=== PATIENT | female | born 1940 | race Caucasian/White ===

== ENCOUNTER → 2021-02-20 | Outpatient (CLI) | payer MEDICARE ==
[~2021-02-20] MED LIST: BENTYL 10MG CAP10 MG PO; DIGOXIN250 MCG PO; ELIQUIS2.5 MG PO; ELOCON45 G1 TP; ESOMEPRAZOLE MA40 MG PO; GABAPENTIN600 MG PO; GLUCOPHAGE500 MG PO; HYDROCHLOROTHIA25 MG PO; IBUPROFEN200 M1 PO; JANUVIA100 MG PO; K-DUR TAB 20 M20 MEQ PO; LANTUS100 UNIT/1 SQ; LASIX80 MG PO; LIPITOR40 MG PO; LORTAB 5-325 M1 EACH PO; TOPROL XL50 MG PO; TYLENOL 325MG325 MG PO; ZOLOFT50 MG PO
== END ==
LOC: HEART 5 13:25
DX: J90 Pleural effusion, not elsewhere classified (principal); I34.0 Nonrheumatic mitral (valve) insufficiency; I51.7 Cardiomegaly; I27.20 Pulmonary hypertension, unspecified; Z95.0 Presence of cardiac pacemaker
CPT/HCPCS: 93306

== ENCOUNTER → 2021-05-17 | Outpatient (CLI) | payer MEDICARE | LOC: RAD 16:56 | DX: R05.9 Cough, unspecified (principal); D71 Functional disorders of polymorphonuclear neutrophils | CPT/HCPCS: 71046 ==